=== PATIENT | male | born 1985 | race Caucasian/White ===

== ENCOUNTER → 2016-07-09 | Outpatient (REF) | LOC: WSOH 11:27 | DX: Z02.1 Encounter for pre-employment examination (principal) ==

== ENCOUNTER → 2016-12-13 | Outpatient (CLI) | payer OTHER | LOC: COL.RAD 10:26 | DX: S43.492A Other sprain of left shoulder joint, initial encounter (principal); M19.012 Primary osteoarthritis, left shoulder; M94.8X1 Other specified disorders of cartilage, shoulder; M75.82 Other shoulder lesions, left shoulder; Z98.890 Other specified postprocedural states | CPT/HCPCS: A9585; Q9967 ==

== ENCOUNTER → 2017-08-05 | Outpatient (CLI) | payer OTHER | LOC: COL.RAD 07:30 | DX: M19.012 Primary osteoarthritis, left shoulder (principal); M94.8X1 Other specified disorders of cartilage, shoulder; Z98.890 Other specified postprocedural states ==